=== PATIENT | female | born 1985 | race Caucasian/White ===

== ENCOUNTER 2017-05-03 11:35 | Outpatient (CLI) | payer OTHER ==
[~2017-05-03] VITALS: Ht 162.6 cm; Wt 63.6 kg
[2017-05-03 12:11] VITALS: BP 120/61
[2017-05-03 12:12] LABS: MICROSCOPIC NOT IND
[2017-05-03 12:26] LABS: AMPHETAMINE SCREEN, URINE Negative (Negative); BARBITURATE SCREEN, URINE Negative (Negative); BENZODIAZEPINE SCREEN, URINE Negative (Negative); CANNABINOID SCREEN, URINE Negative (Negative); COCAINE SCREEN, URINE Negative (Negative); METHADONE SCREEN, URINE Negative (Negative); OPIATE SCREEN, URINE Negative (Negative)
== END 2017-05-03 13:19 | disposition home or self-care (01) ==
LOC: LDOP 11:35
PROVIDERS: ATTEND Obstetrics & Gynecology
DX: O26.892 Other specified pregnancy related conditions, second trimester (principal); O10.912 Unspecified pre-existing hypertension complicating pregnancy, second trimester; M25.552 Pain in left hip; M25.551 Pain in right hip; M54.5 Low back pain; Z3A.21 21 weeks gestation of pregnancy
CPT/HCPCS: 59025; 80307; 81003; 87086; 99201; G0463; G0479

== ENCOUNTER 2017-09-16 11:59 | Emergency (ER) | payer OTHER ==
[~2017-09-16] VITALS: Ht 162.6 cm; Wt 79.3 kg
[~2017-09-16 11:59] MED LIST: DOCU-131 PO; IBUP-1222 PO; OXYC-302 PO
[2017-09-16 12:10] VITALS: BP 129/75
[2017-09-16 13:26] LABS: BASOPHILS # (AUTO) 0.02 x10^3/uL (0-0.1); BASOPHILS % (AUTO) 0 % (0-1); EOSINOPHILS # (AUTO) 0.19 x10^3/uL (0-0.4); EOSINOPHILS % (AUTO) 2 % (1-7); LYMPHOCYTES # (AUTO) 1.73 x10^3/uL (1-3.4); LYMPHOCYTES % (AUTO) 15 % (22-44); MD NO; MEAN CORPUSCULAR HGB CONC 32.8 g/dL (32.4-35.8); MEAN CORPUSCULAR VOLUME 82.3 fL (80-100); MEAN PLATELET VOLUME 8.7 fL (7.4-10.4); MONOCYTES # (AUTO) 0.59 x10^3/uL (0.2-0.8); MONOCYTES % (AUTO) 5 % (2-9); NEUTROPHILS % (AUTO) 78 % (42-75); PLATELET COUNT 270 x10^3/uL (130-400); RED BLOOD COUNT 2.86 x10^6/uL (3.82-5.3); RED CELL DISTRIBUTION WIDTH 15.7 % (9.6-15.2)
[2017-09-16 13:32] LABS: ALANINE AMINOTRANSFERASE 94 U/L (12-78); ALBUMIN 2.3 g/dL (3.4-5.0); ANION GAP 8 mmol/L (5-15); CALCIUM 8.1 mg/dL (8.5-10.1); CHLORIDE 108 mmol/L (98-107); CREATININE 0.71 mg/dL (0.55-1.02)
[2017-09-16 13:34] LABS: ALKALINE PHOSPHATASE 126 U/L (45-117); BILIRUBIN,TOTAL 0.1 mg/dL (0.2-1.0); TOTAL PROTEIN 5.8 g/dL (6.4-8.2)
[2017-09-16 13:56] LABS: INTERNATIONAL NORMALIZED RATIO 0.81 (0.93-1.1); PARTIAL THROMBOPLASTIN TIME 23 Seconds (25-31)
[2017-09-16 14:59] LABS: PROTHROMBIN TIME < 8.7 Seconds (9.6-11.5)
== END 2017-09-16 17:37 | disposition home or self-care (01) ==
LOC: ED 15:37
DX: R10.11 Right upper quadrant pain (principal); R06.00 Dyspnea, unspecified; D62 Acute posthemorrhagic anemia
CPT/HCPCS: 36415; 71046; 76700; 80053; 83615; 83690; 83735; 85025; 85610; 85730; 93005; 99285